=== PATIENT | female | born 1985 | race Two or more races ===

== ENCOUNTER 2021-08-17 10:00 | Outpatient (CLI) | payer OTHER | END 2021-08-17 10:15 | disposition home or self-care (01) | LOC: PPH VACUNA 10:00 | PROVIDERS: ATTEND Emergency Medicine Pediatric Emergency Medicine | DX: Z23 Encounter for immunization (principal) ==

== ENCOUNTER 2021-12-23 11:57 | Emergency (ER) | payer OTHER ==
[~2021-12-23] VITALS: Ht 172.7 cm; Wt 68.0 kg
== END 2021-12-23 13:12 | disposition home or self-care (01) ==
LOC: ER 11:57
DX: S61.230A Puncture wound without foreign body of right index finger without damage to nail, initial encounter (principal); W46.1XXA Contact with contaminated hypodermic needle, initial encounter; Y93.9 Activity, unspecified; Y92.538 Other ambulatory health services establishments as the place of occurrence of the external cause; Y99.9 Unspecified external cause status

== ENCOUNTER 2022-03-07 14:17 | Outpatient (CLI) | payer OTHER | END 2022-03-08 09:17 | disposition home or self-care (01) | LOC: LAB 14:17 | PROVIDERS: ATTEND Specialist | DX: Z20.828 Contact with and (suspected) exposure to other viral communicable diseases (principal) ==

== ENCOUNTER 2022-06-08 15:47 | Outpatient (CLI) | payer OTHER | END 2022-06-08 15:50 | disposition home or self-care (01) | LOC: RX STUDY 15:47 | PROVIDERS: ATTEND Obstetrics & Gynecology Reproductive Endocrinology | DX: N70.11 Chronic salpingitis (principal) ==

== ENCOUNTER 2022-08-02 09:28 | Emergency (ER) | payer OTHER ==
[~2022-08-02] VITALS: Ht 180.3 cm; Wt 76.2 kg
== END 2022-08-02 10:11 | disposition home or self-care (01) ==
LOC: ER 09:28
DX: R10.11 Right upper quadrant pain (principal)

== ENCOUNTER 2023-05-31 10:37 | Outpatient (CLI) | payer OTHER | END 2023-05-31 14:35 | disposition home or self-care (01) | LOC: PRENATAL 10:37 | PROVIDERS: ATTEND Obstetrics & Gynecology Maternal & Fetal Medicine | DX: O36.80X0 Pregnancy with inconclusive fetal viability, not applicable or unspecified (principal); O26.859 Spotting complicating pregnancy, unspecified trimester; O09.529 Supervision of elderly multigravida, unspecified trimester; O09.819 Supervision of pregnancy resulting from assisted reproductive technology, unspecified trimester; Z3A.01 Less than 8 weeks gestation of pregnancy ==

== ENCOUNTER → 2023-07-12 | Outpatient (CLI) | payer OTHER | END | disposition home or self-care (01) | LOC: PPH VACUNA | PROVIDERS: ATTEND Emergency Medicine Pediatric Emergency Medicine | DX: Z23 Encounter for immunization (principal) ==